=== PATIENT | female | born 1995 ===

== ENCOUNTER 2018-08-29 17:43 | Emergency (ER) | payer SELFPAY ==
--- NOTE | 2018-08-30 08:07 | UC ---
- Progress Note Progress Note: NO X-RAYS 08/29/18 Discharge - Sign-Out/Discharge Documenting (check all that apply): Patient Departure All imaging exams completed and their final reports reviewed: No Studies - Discharge Plan Condition: Stable Disposition: LEFT WITHOUT BEING SEEN Referrals: No Primary Care Phys,NOPCP [Primary Care Provider] - - Billing Disposition and Condition Condition: STABLE Disposition: Left Without Being Seen
== END 2018-08-29 18:05 | disposition left against medical advice (07) ==
LOC: UCEAST 17:43
DX: Z53.21 Procedure and treatment not carried out due to patient leaving prior to being seen by health care provider (principal)